=== PATIENT | female | born 1990 | race Caucasian/White ===

== ENCOUNTER 2016-08-30 05:24 | Inpatient (IN) | payer OTHER ==
[~2016-08-30] VITALS: Ht 162.6 cm; Wt 72.1 kg
[2016-08-30] MEDS ORDERED: Lactated Ringer's 1,000 ML IV SCH (05:32)
[2016-08-30] MEDS ORDERED: Carboprost 250 mCg/mL Inj IM PRN ×2 (05:35→08:15)
[2016-08-30] MEDS ORDERED: CeFAZolin Inj 2 GM in IV Premix 1 EACH IV ONE (05:35)
[2016-08-30] MEDS ORDERED: Sodium Citrate-Citric Acid 15 mL Solution PO SCH (05:35)
[2016-08-30] MEDS ORDERED: Methylergonovine 0.2 mg/mL Inj IM PRN ×2 (05:35→08:15)
[2016-08-30] MEDS ORDERED: Hemorrhage Kit, Post Partum XX ONE ×2 (05:35→08:15)
[2016-08-30] MEDS ORDERED: Oxytocin 10 Unit/mL Inj IM PRN ×2 (05:35→08:15)
[2016-08-30 07:16] LABS: BASOPHILS % (AUTO) 0.1 % (0-3); EOSINOPHILS % (AUTO) 0.7 % (0-5); MONOCYTES % (AUTO) 8.6 % (4-12); Mean Corpuscular Hemoglobin 32.9 pg (27.0-35.0); Mean Corpuscular Volume 91.8 fL (81-100); NEUTROPHILS % (AUTO) 72.2 % (40-74); Platelet Count 161 bil/L (150-400)
--- NOTE | 2016-08-30 07:28 | PCM.HPANE ---
Patient Data Date of Service: Aug 30, 2016 Surgeon Admitting Provider:Parth Shields MD Attending Provider:Parth Shields MD Primary Care Physician:Shea Other Provider:Rolan Og Anesthesia Reason for Visit repeat section repeat section Ht/WT & BMI Body Mass Index Allergies Coded Allergies: No Known Drug Allergies (Unverified Allergy, Unknown, 08/30/16) Past Anesthesia History Anesthesia History: Denies:: Abnormal Airway, Anesthesia Reactions, Difficult Intubation, Fam Anesthesia Reaction, Fam Malignant Hypertherm, Malignant Hyperthermia Diabetes History Hx Diabetes?: No MRSA MRSA: No History History of ENT Problems?: No HEENT History: Denies:: Abnormal Airway Cataracts Difficult Intubation Dysphagia Glaucoma Hearing Problem Sinus Problem TMJ Denture Type: None Teeth Condition: Within Normal Limits Hx of Heart Problems?: No Cardiovascular History: Denies:: AICD Abdominal Aortic Aneurism Atrial Fibrillation Cardiac Surgery Chest Pain Congestive Heart Failure Coronary Artery Disease Edema Heart Murmur Hypertension Irregular Heartbeat Pacemaker Peripheral Vascular Rheumatic Fever Thrombophlebitis Valvular Heart Disease Hx of Respiratory Problem?: No Respiratory History: Denies:: Asthma COPD Chest Surgery Cough Dyspnea Emphysema Hemoptysis Oxygen Administration Pneumonia Pulmonary Embolism Tuberculosis Use of C-PAP Machine Use of Inhalers / NEBS Hx Neurologic Problems?: No Hx of GI Problems?: No Hx of Problems?: No Female Hx: Positive for:: Currently Skin History: Denies:: History Skin Disorders? Pressure Ulcers Hx Musculoskeletal Problems?: No Musculoskeletal History: Denies:: Back Injury Degenerative Joint Fibromyalgia Joint Replacement Musculoskeletal Trauma Myasthenia Gravis Osteoarthritis Rheumatoid Arthritis Systemic Lupus Psycho Social History: Denies:: Anxiety Bipolar Disorder Hx Depression Suicide Attempt Hx Surgeries?: Yes Other History/Comment previous C/S for twins Hx Any Other Health Problems?: No Hx Diabetes: No Smoking Status: Never Smoker Stop/Bang Treated for Sleep Apnea?: No Do You Have a CPAP Machine?: No ANA PAULA Risk Assessment: Low Risk, <3 Yes Risk Assessment Category Category 1A: Patient has history of documented sleep apnea, and HAS NOT received any narcotic, sedative or anesthesia administration during this stay. Category 1B: Patient has history of documented sleep apnea, and HAS received any narcotic , sedative or anesthesia administration during this stay Category 2: Patient has SUSPECTED Obstructive Sleep Apnea, and HAS received any narcotic , sedative or anesthesia administration during this stay. Category 3: Patient has SUSPECTED Obstructive Sleep Apnea and HAS NOT received narcotic, sedative or anesthesia administration during this stay. Category 4: Outpatient in Procedural Areas with known sleep apnea or who screen positive for High Risk via the STOP/BANG questionnaire. Exam Exam General Appearance: Alert, Oriented X3, Cooperative, No Acute Distress HEENT/AIRWAY: MP 2 Lungs: Clear to Auscultation Heart: Exam Unremarkable Meds/Labs/Diagnostics Admission Meds Current Medications Lactated Ringer's (Lr) 1,000 ml @ 125 mls/hr Q8H IV Last administered on t 06:23; Start 08/30/16 at 05:32; Stop 08/30/16 at 13:31 Labs Test 08/30/16 06:00 White Blood Count 10.4th/mm3 (3.8-10.1) Red Blood Count 3.68mil/mm3 (3.90-5.20) Hemoglobin 12.1g/dL (12.0-15.6) Hematocrit 33.8% (35.0-46.0) Mean Corpuscular Volume 91.8fL (81-100) Mean Corpuscular Hemoglobin 32.9pg (27.0-35.0) Mean Corpuscular Hemoglobin Concent 35.8% (32.0-37.0) Red Cell Distribution Width 15.0% (12.3-15.4) Platelet Count 161bil/L (150-400) Neutrophils (%) (Auto) 72.2% (40-74) Lymphocytes (%) (Auto) 17.5% (14-46) Monocytes (%) (Auto) 8.6% (4-12) Eosinophils (%) (Auto) 0.7% (0-5) Basophils (%) (Auto) 0.1% (0-3) Plan Impression Patient chart reviewed, patient interviewed and anesthestic plan with risks, benefits, and alternatives discussed, and informed consent obtained. NPO per Anesth. Guidelines: Yes ASA Physical Status: ASA1 Normal Healthy Anesthetic Plan: SAB Bene/Risks/Altern/Consents: Yes HP Complete Prior to Induction: Yes Dawit Tejada MD Aug 30, 2016 07:28
[2016-08-30] MEDS ORDERED: Atropine 0.4 mg/mL Inj IV PRN (07:45)
[2016-08-30] MEDS ORDERED: Ondansetron 2 mg/mL 2 mL Inj IVPUSH PRN (07:45)
[2016-08-30] MEDS ORDERED: EPHEDrine Sulfate 50 mg/mL Inj IVPUSH PRN (07:45)
[2016-08-30] MEDS ORDERED: Phenylephrine/NS-PF 100 mCg/mL 5 mL Syringe IVPUSH PRN (07:45)
[2016-08-30] MEDS ORDERED: MetoCLOpramide 5 mg/mL 2 mL Inj IVPUSH PRN (07:45)
[2016-08-30] MEDS ORDERED: fentaNYL-PF 50 mCg/mL 2 mL Inj IVPUSH PRN (07:45)
[2016-08-30] MEDS ORDERED: Oxytocin 30 Units/500 mL LR 30 UNITS in IV Premix 1 EACH IV PRN (08:15)
[2016-08-30] MEDS ORDERED: TdaP Vaccine 0.5 mL Inj IM ONE (08:15)
[2016-08-30] MEDS ORDERED: Sodium Chloride LOK Flush 10 mL Syringe IVFLUSH PRN (08:15)
[2016-08-30] MEDS ORDERED: Measles-Mumps-Rubella Vaccine 0.5 mL Inj SUBQ ONE (08:15)
[2016-08-30] MEDS ORDERED: LANOlin HPA 7 Gm Ointment TOPICAL PRN (08:15)
[2016-08-30] MEDS ORDERED: Acetaminophen IV 1,000 MG in IV Premix 1 EACH IV PRN (08:15)
[2016-08-30] MEDS ORDERED: Influenza (Adult) Vaccine 0.5 mL Syringe IM ONE (08:15)
[2016-08-30] MEDS ORDERED: hydrOXYzine Pamoate 25 mg Capsule PO PRN (08:15)
--- NOTE | 2016-08-30 09:49 | PCM.ANEP1 ---
Post Anesthesia PACU Phase 1 Assessment Date of Service: Aug 30, 2016 Vital Signs 115/62 75 97% 37.2 alert, oriented Anesthetic Administered: Regional Block Level of Alertness: Awake, talking RUIZ's with Equal Strength: Yes Pain: No Nausea or Vomiting: No CV Function & Hydration Stable: Yes Airway Device: Oxygen Delivery: Room Air Lungs: Clear to Auscultation Dermatome Level: T6 (Xyphoid Process) PACU Phase 2 Assessment Complications: No Follow up Care: No Patient Instructions Provided: N/A Dawit Tejada MD Aug 30, 2016 09:49
[2016-08-30] MEDS ORDERED: Phenylephrine/NS-PF 100 mCg/mL 5 mL Syringe IVPUSH ONE (10:49)
[2016-08-30] MEDS ORDERED: Dexamethasone 4 mg/mL Inj ONE (10:49)
[2016-08-30] MEDS ORDERED: Morphine PF 1 mg/mL 10 mL Inj ONE (10:49)
[2016-08-30] MEDS ORDERED: Ondansetron 2 mg/mL 2 mL Inj ONE (10:49)
[2016-08-30] MEDS ORDERED: Oxytocin 10 Unit/mL Inj ONE (10:51)
[2016-08-30] MEDS ORDERED: CeFAZolin Inj 2 GM in IV Premix 1 EACH IV SCH (16:30)
[2016-08-30] MEDS: CeFAZolin Inj 2 GM in IV Premix 1 EACH IV SCH (16:53)
--- NOTE | 2016-08-30 20:58 | OP ---
[address] [address] OPERATIVE REPORT PATIENT: DEON CASTILLO : 1990 MR#: [id number] ADMIT: 08/30/2016 JOB ID: [id number] DATE OF SURGERY: 08/30/2016 SURGEON: Parth Shields MD. FLIGHT ENGINEER PERFORMANCE QUALIFIED: Sukhdev Lowe MD. ANESTHESIA: Spinal. PREOPERATIVE DIAGNOSIS(ES): 1. Term . 2. Prior section, with requested scheduled repeat section. POSTOPERATIVE DIAGNOSIS(ES): 1. Term . 2. Prior section, with requested scheduled repeat section. PROCEDURE PERFORMED: Repeat low transverse section. INDICATIONS FOR SURGERY: This patient previously underwent section for delivery of twins. She subsequently underwent vaginal delivery although she remembers it as being very traumatic and difficult to recover from physically and emotionally. She thus has requested repeat section for delivery of this baby and thus has been scheduled for section on August 30, 2016, at 39-1/7 weeks of gestation. She has not wanted tubal ligation. FINDINGS AT SURGERY: Fetus was in vertex presentation. Amniotic fluid was clear. Baby was active and crying and vigorous on the operative field. Note that ovaries, tubes were normal in appearance. At procedure's close, There was no obvious bleeding occurring at any site Internally. Uterus had been closed in double layer For strength and hemostasis. Urine was clear. Instrument, needle and sponge counts were all found to be correct. It certainly is anticipated that mother and baby will do very well during the postoperative/ timeframe. PROCEDURE: The patient was placed in supine position on the operating table after activation of spinal anesthesia. She was then repositioned into the left lateral tilt position and prepped and draped in usual sterile manner. Appropriate time-out was taken followed by bringing the patient's into the room to be at patient's side. Spinal anesthesia was tested for efficacy. Pfannenstiel incision was then made through the old surgical scar, carried incision through skin, subcutaneous tissues and fascial layer. Cautery was utilized where necessary to effect complete hemostasis. Rectus muscles were then from the overlying fascia using blunt and sharp dissection. Rectus muscles were then in the midline and the peritoneal cavity was carefully entered. Bladder blade was placed and a transverse incision was then made in the lower uterine segment, dividing 1st the vesicouterine peritoneal fold allowing the bladder to fall away as the bladder flap was developed, and uterine incision was then carried down to the amniotic sac which was then ruptured and clear fluid recovered. Uterine incision was then extended bilaterally in a curvilinear direction upwards using bandage scissors, and head was then brought through the incision followed by the shoulders, body, and extremities. Baby was active and crying and vigorous. After 1 minute of delay, umbilical cord was clamped and cut and baby was then taken to warmer for further management. Cord blood was obtained for routine studies. Placenta with membranes were massaged from the uterus, intact. Uterus was exteriorized and the uterine cavity was gauze curettaged and the cervix noted to be open to 1.5 cm. Uterine incision was then closed in a running, locking manner using #1 chromic suture and then with an imbricating running stitch of #1 chromic suture, thus all in all, effecting a two-layer closure. One additional oertog-dy-cosrc stitch was required at the right die trimmer of the incision and another two rhfcyj-uf-htsia stitches required at the mid aspect of the incision to effect complete hemostasis. There was then no further bleeding, and urine was clear in the Sky catheter tubing and ovaries and tubes were inspected and then extensive irrigation accomplished in the posterior cul-de-sac area. Uterus was then returned to the abdominal cavity and gutter areas were cleared of blood and clots and fluid. Final uterine wall inspection and bladder inspection demonstrated no bleeding sites and once again, urine was noted to be clear. Instrument, needle and sponge counts were all found to be correct. Rectus muscles were then drawn together across the midline using interrupted stitches of #1 chromic suture. Subfascial plane was then inspected and light cautery applied where needed. The fascial layer was then closed in a running manner using #1 PDS, with great care given to bury the knot on each side. The subcutaneous tissues were then irrigated and cautery applied where needed to effect complete hemostasis, and skin incision was then closed with mari. Skin edges were thus well approximated and there was no incisional bleeding occurring. Uterus was expressed of blood and clots, and the Pfannenstiel incision was covered with a pressure dressing. Procedures were thus complete. The patient was taken to her room for recovery. ESTIMATED BLOOD LOSS: 400 cc. COMPLICATIONS: None. PROGNOSIS: Good for surgical recovery. JIAN
--- NOTE | 2016-08-31 | HP ---
[address] [address] HISTORY AND PHYSICAL PATIENT: DEON CASTILLO : 1990 MR#: [id number] ADMIT: 08/30/2016 JOB ID: [id number] CORRECTED REPORT: [facility] NOTE: DATE: 08/30/2016, 0600 hours The patient has been followed prenatally at [facility], see records for details. Due date is September 05, 2016, placing the patient at 39 and 1/7 weeks gestational age on admission. She has previously undergone section for delivery of twins followed by successful trial of labor, i.e. . However, the experience was difficult for her physically and emotionally, and she simply has been very clear that she has not wanted a trial of labor again but rather having preference. She has understood the pros and cons of each approach. She understands the risks of surgery, which include bleeding, infection, injury to the urinary tract and bowel, anesthetic risks, wound problems, postoperative pain, etc. She has had all her questions answered, no guarantees have been stated or implied, and she has signed informed consent for surgery. Note that she has not preferred tubal ligation. In summary, then, the patient was admitted to [facility] on the morning of August 30, 2016 to undergo a scheduled repeat section per her request PHYSICAL EXAMINATION ON ADMISSION: Vital signs stable. Afebrile. Normal weight. No thyromegaly. Lungs are clear to auscultation and percussion. Heart: Regular in rate and rhythm. Abdomen: Fundal height size consistent with dates. Positive heartbeat. Vertex presentation. Pelvic examination deferred. DIAGNOSTIC DATA: Preoperative hemoglobin and platelets okay. IMPRESSION: 1. A 39-1/7 weeks , for delivery. 2. Prior section and prior vaginal delivery, with patient requesting repeat delivery currently. 3. See record for additional diagnoses. PLAN: The patient was admitted to [facility] on August 30, 2016 in the morning for repeat section, yet no tubal ligation (preferring reversible contraception as may have more children). Corrected by 09/02/16 at 2:56pm Report type.
[2016-08-31] MEDS: CeFAZolin Inj 2 GM in IV Premix 1 EACH IV SCH (00:55)
[2016-08-31 06:59] LABS: Mean Corpuscular Hemoglobin 31.6 pg (27.0-35.0); Mean Corpuscular Volume 90.6 fL (81-100)
[2016-08-31] MEDS: oxyCODONE-Acetamin 5-325 mg Tablet PO PRN ×4 (08:55→21:44)
[2016-08-31] MEDS: Lactated Ringer's 1,000 ML IV SCH (10:30)
[2016-09-01] MEDS: Lactated Ringer's 1,000 ML IV SCH ×2 (00:15→08:15)
[2016-09-01] MEDS: oxyCODONE-Acetamin 5-325 mg Tablet PO PRN ×3 (04:11→12:28)
--- NOTE | 2016-09-01 07:31 | PCM.DIOB ---
Obstetrical Disch Instruction Dates of Hospitalization Date of Hospital Admission Aug 30, 2016 at 05:24 Providers Admitting Physician: Parth Shields MD Primary Care Physician: Noplacy Attending Physician: Parth Shields MD Discharge Diagnosis Problems: (1) Status: Acute ICD Code: Z33.1 Diet Discharge Diet: No restrictions Activity Discharge Activity-General: Pelvic Rest for 6 weeks, No lifting >10 pounds for 4-6 weeks Dressing and Incisional Care Dressing Care: Allow Steri Stripes to fall off Hygiene: May shower, DO NOT soak incision under water Follow Up Plan Follow-up appointment: Weeks (Follow up in 2 and 6 weeks for / postoperative checkups.) Call your provider for: Fever or Chills, Shortness of breath, Heavy vaginal bleeding, Red painful breasts Parth Shields MD Sep 01, 2016 07:31
[2016-09-01] MEDS ORDERED: DOCU-41 PO (07:34)
[2016-09-01] MEDS ORDERED: FERR-83 PO (07:34)
[2016-09-01] MEDS ORDERED: OXYC1TAB24 PO (07:34)
[2016-09-01] MEDS ORDERED: IBUP-1827 PO (07:34)
[2016-09-01 11:22] VITALS: BP 105/64; PULSE 71; RESP 18
--- NOTE | 2016-09-01 19:05 | PROG NOTE ---
[address] [address] PROGRESS NOTE PATIENT: DEON CASTILLO : 1990 MR#: [id number] ADMIT: 08/30/2016 JOB ID: [id number] DATE: 08/31/2016 [facility] NOTE: This patient underwent repeat low transverse section in the morning of August 30, 2016. During the postoperative/ timeframe, patient has done well, with stable vitals, afebrile, with reasonable bleeding, reasonable pain management, ambulating and voiding, without leg pain or shortness of breath, without incisional problem and handling baby well. Note that hemoglobin is 9.4. The patient has not had excessive bleeding and bleeding had been slowing. She was a little bit dizzy/lightheaded initially but this has steadily improved. PLAN: Continue postoperative/ care. Anticipate discharge to home tomorrow, i.e. on September 01, 2016, on the second postoperative/ day.
--- NOTE | 2016-09-01 19:13 | DIS ---
[address] [address] DISCHARGE SUMMARY PATIENT: DEON CASTILLO : 1990 MR#: [id number] ADMIT: 08/30/2016 JOB ID: [id number] DIS: 09/01/2016 DISCHARGE DIAGNOSES: 1. A 39-1/7 week , delivered. 2. Prior section, now status post repeat . 3. Mild anemia. PROCEDURES PERFORMED DURING HOSPITALIZATION: 1. Repeat low transverse section. 2. Spinal anesthesia. HOSPITAL COURSE: The patient was admitted to [facility] on August 30, 2016, on which day she underwent the procedures as described above. During the postoperative/ timeframe the patient did well and was ready for discharge on the second postoperative/ day. She was having no excessive bleeding, pain management was good, vitals were stable, and she remained afebrile. She ambulated and voided. Incision was without infection or breakdown. She handled baby well and was nursing well. The patient requested discharge to home. DISCHARGE PROGRAM: The patient's mari were removed and benzoin was applied and half-inch Steri-Strips. She was asked to observe pelvic rest, not do any heavy lifting for six weeks. She will call if she has any heavy bleeding, high fever, or other problem, yet otherwise she will follow up at two and at six weeks for postoperative/ checkups. Discharge medications include Percocet 5/325, ibuprofen 600, Colace 100, and ferrous sulfate 325 (twice daily), prescriptions written. She will also continue to use vitamin daily while nursing, having supply at home.
== END 2016-09-01 13:48 | disposition home or self-care (01) | DRG 766 ==
LOC: FBC 05:24 → EDSTATUS 07:15
PROVIDERS: ADMIT Obstetrics & Gynecology; ATTEND Obstetrics & Gynecology
PROC: 10D00Z1 Extraction of Products of Conception, Low, Open Approach (ICD-10-PCS; principal; 2016-08-30 07:15)
DX: O34.211 Maternal care for low transverse scar from previous cesarean delivery (principal); O90.81 Anemia of the puerperium; D64.9 Anemia, unspecified; Z37.0 Single live birth; Z3A.39 39 weeks gestation of pregnancy